=== PATIENT | male | born 1980 | race Caucasian/White ===

== ENCOUNTER 2018-08-06 07:22 | Emergency (ER) | payer BC, OTHER ==
[2018-08-06 07:29] VITALS: RESP 16; TEMP 97.8
[2018-08-06 07:43] VITALS: O2SAT 100
[2018-08-06] MEDS ORDERED: CEFTRIAXONE 1 GM PDS IM ONE (08:04)
[2018-08-06] MEDS ORDERED: CEFTRIAXONE 1 GM PDS ONE (08:13)
[2018-08-06] MEDS ORDERED: LIDOCAINE HCL 1% MPF 30 SOL INFIL ONE (08:16)
[2018-08-06] MEDS ORDERED: LIDOCAINE HCL 1% MPF 30 SOL ONE (08:18)
[2018-08-06 08:26] LABS: BASOPHILS % (AUTO) 1 % (0-3); EOSINOPHILS % (AUTO) 1 % (0-9); HEMATOCRIT 45 % (39-53); HEMOGLOBIN 15.3 gm/dl (13.5-17.7); LYMPHOCYTES % (AUTO) 11.8 % (10-50); MEAN CORPUSCULAR HEMOGLOBIN 30.1 pg (27.0-32.0); MEAN CORPUSCULAR HGB CONC 33.8 gm/dl (32.0-36.0); MEAN CORPUSCULAR VOLUME 89 fL (80-100); NEUTROPHILS % (AUTO) 77.4 % (37-80)
[2018-08-06 09:10] VITALS: BP 138/78; PULSE 86
== END 2018-08-06 08:45 | disposition home or self-care (01) | DRG 603 ==
LOC: ED 07:22
DX: L03.314 Cellulitis of groin (principal); E11.9 Type 2 diabetes mellitus without complications; L02.214 Cutaneous abscess of groin; Z79.4 Long term (current) use of insulin
CPT/HCPCS: 36415; 85025; 87070; 87075; 87077; 87186; 87205; 96372; 99282; 99283; J0696; J2001